=== PATIENT | female | born 1930 | race Caucasian/White ===

== ENCOUNTER 2020-03-25 23:55 | Emergency (ER) | payer MEDICARE ==
[~2020-03-25] VITALS: Ht 167.6 cm; Wt 99.8 kg
[2020-03-26] MEDS ORDERED: PREDNISONE 20 M20 M1 PO (01:47)
[2020-03-26] MEDS ORDERED: ZPAK PO (01:47)
[2020-03-26 02:11] LABS: ABSOLUTE EOSINOPHILS 0.3 thou/uL (0.0-0.7); ABSOLUTE MONOCYTES 0.8 thou/uL (0.0-1.2); ABSOLUTE NEUTROPHILS 10.4 thou/uL (1.6-8.1); BASOPHILS 0.3 %; EOSINOPHILS 2.2 %; HEMATOCRIT 38.3 % (37.0-47.0); HEMOGLOBIN 12.9 gm/dL (12.0-15.0); LYMPHOCYTES 8.2 %; MCH 30.7 pg (26.0-34.0); MCHC 33.6 g/dL (28.0-37.0); MCV 91.6 fL (80.0-100.0); MONOCYTES 6.6 %; MPV 7.2 fl. (7.2-11.1); NUCLEATED RBCS 0 /100WBC; PLATELET COUNT* 241 thou/uL (150-400); POLYS 82.7 %; RBC 4.19 mil/uL (4.20-5.00); RDW-CV 14.1 % (10.5-14.5); WBC 12.6 thou/uL (4.0-11.0)
[2020-03-26] MEDS ORDERED: ASA81BEC PO (02:16)
[2020-03-26] MEDS ORDERED: COZAAR100 MG PO (02:17)
[2020-03-26] MEDS ORDERED: ARICEPT10 M1 PO (02:18)
[2020-03-26] MEDS ORDERED: MYRBETRIQ50 MG PO (02:18)
[2020-03-26] MEDS ORDERED: SPIRONOLACTONE25 MG PO (02:18)
[2020-03-26] MEDS ORDERED: LIPITOR40 MG PO (02:18)
[2020-03-26 02:19] LABS: CREATININE 0.7 mg/dL (0.6-1.3); POTASSIUM 4.1 mmol/L (3.5-5.1)
[2020-03-26] MEDS ORDERED: METOPROLOL TA37.5 MG PO (02:19)
[2020-03-26] MEDS ORDERED: TESSALON PERLE100 M1 PO (02:20)
[2020-03-26] MEDS ORDERED: FOLIXAPURE5000 UNIT PO (02:20)
[2020-03-26] MEDS ORDERED: TYLENOL EXTRA500 MG PO (02:20)
[2020-03-26] MEDS ORDERED: GLIPIZIDE-METF1 EAC1 PO (02:22)
[2020-03-26] MEDS ORDERED: ROBAFEN100 MG/5 M PO (02:23)
[2020-03-26 02:31] LABS: ALBUMIN 3.9 g/dL (3.4-5.0); TOTAL BILIRUBIN 0.8 mg/dL (<0.1-1.0); TOTAL PROTEIN 7.2 g/dL (6.4-8.2)
[2020-03-26 03:36] VITALS: BP 138/74
--- NOTE | 2020-03-26 11:40 | EKG ---
[place] [address] ELECTROCARDIOGRAM REPORT Name: ROSALBA BELLE Room: [facility] ([place], [place])#: [id number] Admission: 03/25/20 Attend Phys: Discharge: 03/26/20 Date of : [birth year] Date of Service: 03/26/20 0010 Report #: [id number] THIS REPORT FOR: //name// [facility] ED Test Date: 2020-03-26 Test Time: 00:10:16 Pat Name: ROSALBA BELLE Department: Room: Gender: [facility]: [place] : 1930 Requested By: [place] Order Number: [id number] MD: Luis Eduardo Mancera Measurements Intervals [place] Rate: 82 P: 38 OR: 165 QRS: 57 QRSD: 88 T: 64 QT: 384 QTc: 449 Interpretive Statements Sinus rhythm Atrial premature complex Consider left ventricular hypertrophy No previous ECG available for comparison Electronically Signed On 03-26-2020 11:40:38 CDT by Luis Eduardo Mancera [email or web address] <ELECTRONICALLY SIGNED> By: Luis Eduardo Mancera MD, [facility] 03/26/20 1140 Luis Eduardo Mancera MD, FAC /EPI
== END 2020-03-26 03:36 | disposition home or self-care (01) ==
LOC: M.ERS 23:55
PROVIDERS: Family Medicine
DX: J40 Bronchitis, not specified as acute or chronic (principal); Z20.828 Contact with and (suspected) exposure to other viral communicable diseases; R35.0 Frequency of micturition; E11.9 Type 2 diabetes mellitus without complications; Z88.0 Allergy status to penicillin

== ENCOUNTER 2020-05-03 23:22 | Emergency (ER) | payer MEDICARE ==
[~2020-05-03] VITALS: Ht 157.5 cm; Wt 99.8 kg
[~2020-05-03 23:22] MED LIST: ARICEPT10 M1 PO; ASA81BEC PO; COZAAR100 MG PO; FOLIXAPURE5000 UNIT PO; GLIPIZIDE-METF1 EAC1 PO; LIPITOR40 MG PO; METOPROLOL TA37.5 MG PO; MYRBETRIQ50 MG PO; PREDNISONE 20 M20 M1 PO; ROBAFEN100 MG/5 M PO; SPIRONOLACTONE25 MG PO; TESSALON PERLE100 M1 PO; TYLENOL EXTRA500 MG PO; ZPAK PO
[2020-05-04] MEDS ORDERED: CEFDINIR300 MG PO (00:27)
[2020-05-04] MEDS ORDERED: PROMETHAZINE-C473 ML PO (00:27)
[2020-05-04 00:37] VITALS: BP 151/77
== END 2020-05-04 00:38 | disposition home or self-care (01) ==
LOC: M.ERS 23:22
DX: R91.8 Other nonspecific abnormal finding of lung field (principal); Z20.828 Contact with and (suspected) exposure to other viral communicable diseases; E11.9 Type 2 diabetes mellitus without complications; Z88.0 Allergy status to penicillin

== ENCOUNTER 2020-12-14 17:33 | Emergency (ER) | payer MEDICARE ==
[~2020-12-14] VITALS: Ht 167.6 cm; Wt 97.5 kg
[~2020-12-14 17:33] MED LIST changes: +CEFDINIR300 MG PO; +PROMETHAZINE-C473 ML PO
[2020-12-14] MEDS ORDERED: METFORMIN HCL500 M3 PO (17:50)
[2020-12-14] MEDS ORDERED: ACETAMINOPHEN-1 EAC2 PO (20:48)
[2020-12-14] MEDS ORDERED: MELOXICAM15 MG PO (20:48)
[2020-12-14 21:17] VITALS: BP 149/79
== END 2020-12-14 21:18 | disposition home or self-care (01) ==
LOC: M.ERS 17:33
DX: S83.8X1A Sprain of other specified parts of right knee, initial encounter (principal); S93.491A Sprain of other ligament of right ankle, initial encounter; E11.9 Type 2 diabetes mellitus without complications; W18.39XA Other fall on same level, initial encounter; Y93.89 Activity, other specified; Y92.091 Bathroom in other non-institutional residence as the place of occurrence of the external cause; Y99.8 Other external cause status

== ENCOUNTER 2021-02-10 12:11 | Emergency (ER) | payer MEDICARE ==
[~2021-02-10] VITALS: Ht 160 cm; Wt 95.7 kg
[~2021-02-10 12:11] MED LIST changes: +ACETAMINOPHEN-1 EAC2 PO; +MELOXICAM15 MG PO; +METFORMIN HCL500 M3 PO
[2021-02-10 13:55] LABS: ABSOLUTE LYMPHOCYTES 0.6 thou/uL (0.8-5.3); ABSOLUTE MONOCYTES 0.8 thou/uL (0.0-1.2); ABSOLUTE NEUTROPHILS 4.6 thou/uL (1.6-8.1); BASOPHILS 0.6 %; EOSINOPHILS 0.7 %; HEMATOCRIT 39.5 % (37.0-47.0); HEMOGLOBIN 12.6 gm/dL (12.0-15.0); LYMPHOCYTES 10.5 %; MCH 28.9 pg (26.0-34.0); MCHC 32.1 g/dL (28.0-37.0); MCV 90.1 fL (80.0-100.0); MONOCYTES 13.2 %; MPV 8.3 fl. (7.2-11.1); NUCLEATED RBCS 0 /100WBC; PLATELET COUNT* 178 thou/uL (150-400); RBC 4.38 mil/uL (4.20-5.00); RDW-CV 13.3 % (10.5-14.5); WBC 6.2 thou/uL (4.0-11.0)
[2021-02-10 14:11] LABS: CALCIUM 9.3 mg/dL (8.5-10.1); POTASSIUM 4.3 mmol/L (3.5-5.1)
[2021-02-10 14:12] LABS: ALBUMIN 3.6 g/dL (3.4-5.0); TOTAL BILIRUBIN 0.4 mg/dL (<0.1-1.0); TOTAL PROTEIN 7.4 g/dL (6.4-8.2)
[2021-02-10] MEDS ORDERED: TESSALON PERLE100 MG PO (14:17)
[2021-02-10 14:39] VITALS: BP 183/88
--- NOTE | 2021-02-10 15:30 | EKG ---
[place] [address] ELECTROCARDIOGRAM REPORT Name: ROSALBA BELLE Room: [facility]#: [id number] Admission: 02/10/21 Attend Phys: Discharge: 02/10/21 Date of : [birth year] Date of Service: 02/10/21 1358 Report #: [id number] THIS REPORT FOR: //name// [facility] ED Test Date: 2021-02-10 Test Time: 13:58:24 Pat Name: ROSALBA BELLE Department: Room: Gender: F Residential In[employer]: : 1930 Requested By: Asmita Rae Order Number: [id number] : Clint Delong Measurements Intervals [place] Rate: 96 P: -32 [place]: 145 QRS: 25 QRSD: 81 T: 56 QT: 346 QTc: 438 Interpretive Statements Sinus rhythm Compared to ECG 03/26/2020 00:10:16 Atrial premature complex(es) no longer present Electronically Signed On 02-10-2021 15:30:16 CDT by Clint Delong [email or web address] <ELECTRONICALLY SIGNED> By: Clint Delong MD, [facility] 02/10/21 1530 1358 1358 Clint Delong MD, [facility] /EPI
== END 2021-02-10 14:40 | disposition home or self-care (01) ==
LOC: M.ERS 12:11
PROVIDERS: Nurse Practitioner Family
DX: E11.65 Type 2 diabetes mellitus with hyperglycemia (principal); Z20.822 Contact with and (suspected) exposure to COVID-19; E11.9 Type 2 diabetes mellitus without complications; E78.5 Hyperlipidemia, unspecified; I10 Essential (primary) hypertension; Z79.1 Long term (current) use of non-steroidal anti-inflammatories (NSAID); Z79.82 Long term (current) use of aspirin; Z79.891 Long term (current) use of opiate analgesic; Z79.84 Long term (current) use of oral hypoglycemic drugs; Z88.0 Allergy status to penicillin